=== PATIENT | male | born 2000 | race Hispanic/Latino ===

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

== ENCOUNTER 2022-02-09 19:17 | Emergency (ER) | payer OTHER ==
--- OUTSIDE RECORDS SUMMARY | 2022-02-09 19:21 | XMS REPORT | Continuity of Care Document ---
:2000 Author Organization [facility] Address [address] [place] [address] Care Team Providers Name Role Phone Nomi Barraza MD Primary Care Physician [phone] NOMI BARRAZA Attending Clinician Unavailable Dread Crisostomo MD Attending Clinician Doctor Unassigned, Post Attending Clinician Unavailable Joe Godinez MD Attending Clinician Nomi Barraza MD Attending Clinician Only, Yuri Test Attending Clinician Unavailable Jarrod Lawler MD Attending Clinician Jessi Delvalle NP Attending Clinician Nurse, Adc Fam Pob I Attending Clinician Unavailable PRASANNA LEVI Attending Clinician Unavailable KARLY BLAIR Attending Clinician Unavailable Payers Payer Name Policy Type Policy Number Effective Date Expiration Date Dwayne BANEGAS [id number] 2001 00:00:00 HMO/POS/OPEN ACCESS Problems Condition Condition Condition Status Onset Resolution Last Treating Co mments Source Name Details Category Date Date Treatment Clinician Date Seizure Seizure Disease Active [facility] disorder disorder 12-06 [facility] 00:00: 00 S/P TOPSTITCHER LOCKSTITCH S/P TOPSTITCHER LOCKSTITCH Disease Active [facility] shunt shunt 12-06 Health 00:00: 00 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 00:00: 00 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 07-24 Colleg e with with 00:00: of impairment impairment 00 Me dicin of of e consciousn [facility] ess [facility] 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 08-08 [facility] seizure seizure 00:00: of (HCCode) (HCCode) 00 Medici n e S/P TOPSTITCHER LOCKSTITCH S/P TOPSTITCHER LOCKSTITCH Disease Active 2016-07 [facility] shunt shunt 2 [place] 00:00: of 00 Medicin e No known No known Disease Unive rs active active ity of problems problems [place] [facility] Allergies, Adverse Reactions, Alerts Allergy Allergy Status Severity Reaction(s) Onset Inactive Treating Comm ents Source Name Type Date Date Clinician CODEINE DRUG Active Med Rash 2019-07 [facility] INGREDI 0-19 ity of 00:00: [place] 00 Medical Branch Codeine Propensi Active Rash 2019-07 [facility] ty to 0-19 ity of adverse 00:00: [place] reaction 00 Medical s Branch CODEINE [facility]ergy [facility] Codeine Propensi Active Rash 2016-07 [facility] ty to 207 [place] adverse 00:00: of reaction 00 Medicin s to e drug Codeine Allergy Active Rash 0 [facility] to 2-15 [facility] 00:00: e 00 Social History Social Habit Start Date Stop Date Quantity Comments Source History SDIL University o f Alcohol Comment [place] [facility] History SDIL University o f Alcohol Std [place] [facility] Drinks [facility] History [facility] University o f Alcohol Binge [place] [facility] Exposure to 2021-11-06 2021-12-06 Not sure [place] [facility] SARS-CoV-2 00:00:00 09:56:00 (event) Tobacco use and 2020-06-11 2020-06-11 Never used [facility] Co llege of exposure 00:00:00 00:00:00 Medicine Alcohol intake 2020-06-11 2020-06-11 Current [facility] Col lege of 00:00:00 00:00:00 non-drinker of Medicine alcohol (finding) History [facility] 2020-04-19 2020-04-19 1 University o f Alcohol Frequency 00:00:00 00:00:00 Rafia morse Branch Sex Assigned At [birth year] [facility] 00:00:00 00:00:00 Smoking Status Start Date Stop Date Source Tobacco smoking consumption unknown [facility] Never smoker [facility] o f Medicine Medications Ordered Filled Start Stop Current Ordering Indication Dosage Frequency Signature Comments Components Source Medication Medication Date Date Medication? Clinician (SIG) Name Name amphetamine Yes [id number] 20mg Take 1 Univers -dextroamph 7-28 capsule by it y of etamine 00:00: mouth [place] (ADDERALL 00 every Medical XR) 20 mg morning. Branch 24 hr capsule amphetamine Yes [id number] 20mg Take 1 Univers -dextroamph 6-29 capsule by it y of etamine 00:00: mouth [place] (ADDERALL 00 every Medical XR) 20 mg morning. Branch 24 hr capsule amphetamine 2021- No [id number] 20mg Take 1 Univers -dextroamph 6-29 07-28 capsule by i ty of etamine 00:00: 00:00 mouth [place] (ADDERALL 00 :00 every Medical XR) 20 mg morning. Branch 24 hr capsule levETIRAcet Yes [id number] 500mg Q.5D Take 1 [facility] am (Keppra) 6-07 tablet Health 500 MG 00:00: (500 mg tablet 00 total) by mouth 2 (two) times a day. levETIRAcet 2021-0 Yes [id number] 500mg Q.5D Take 1 [facility] am (Keppra) 6-07 tablet Health 500 MG 00:00: (500 mg tablet 00 total) by mouth 2 (two) times a day. levETIRAcet 2021-0 Yes [id number] 500mg Q.5D Take 1 [facility] am (Keppra) 6-07 tablet Health 500 MG 00:00: (500 mg tablet 00 total) by mouth 2 (two) times a day. amphetamine Yes [id number] 20mg Take 1 Univers -dextroamph 6-01 capsule by it y of etamine 00:00: mouth [place] (ADDERALL 00 every Medical XR) 20 mg morning. Branch 24 hr capsule amphetamine 2021- No [id number] 20mg Take 1 Univers -dextroamph 11-30 capsule by i ty of etamine 00:00: 00:00 mouth [place] (ADDERALL 00 :00 every Medical XR) 20 mg morning. Branch 24 hr capsule amphetamine 2021- No [id number] 15mg Take 1 Univers -dextroamph 10-31 capsule by i ty of etamine 00:00: 00:00 mouth [place] (ADDERALL 00 :00 every Medical XR) 15 mg morning. Branch 24 hr capsule levETIRAcet 2020-07- No 1{tbl} Q.5D Take 1 U T am (Keppra) 07-27 tablet by He alth 500 MG 00:00: 00:00 mouth 2 tablet 00 :00 (two) times a day. amphetamine 2020-07 Yes [facility] -dextroamph 1-03 Health etamine 00:00: (Adderall) 00 20 MG tablet amphetamine 2020-07 Yes UT -dextroamph -03 Health etamine 00:00: (Adderall) 00 20 MG tablet amphetamine 2020-07 Yes [facility] -dextroamph 103 Health etamine 00:00: (Adderall) 00 20 MG tablet Multiple 2019-07 Yes Take by [facility] Vitamins-Mi 2-11 mouth. Colleg e nerals 15:57: of (MULTIVITAM 44 Medicin IN ADULT e OR) doxycycline 2019-07 Yes 100mg Take 100 [facility] (VIBRA-TABS 2-11 mg by [place] ) 100 MG 15:33: mouth. of tablet 14 Medicin e Dapsone 2019-07 Yes Apply [facility] (ACZONE EX) 2-11 topically. Co llege 15:33: of 14 Medicin e levetiracet 2019-07 Yes [id number] 500mg Take 1 [facility] am (KEPPRA) 2-11 8 Tablet by Col lege 500 MG 00:00: mouth two of tablet 00 times Medicin daily. e levetiracet 2019-07- No [id number] TAKE ONE [facility] am (KEPPRA) 0- 12-11 8 (1) College 500 MG 00:00: 00:00 TABLET(S) of tablet 00 :00 BY MOUTH Medicin TWICE A e DAY. levETIRAcet 2019-07 Yes 500mg Take 500 U nivers am (KEPPRA) 0-19 mg by ity of 500 mg 18:38: mouth 2 [place] tablet 05 (two) Medical times Branch daily. doxycycline 2019-07 Yes 100mg Take 100 U nivers hyclate 100 0-19 mg by ity of mg tablet 18:38: mouth [place] 05 daily. Medical Branch levETIRAcet 2019-07 Yes 500mg Take 500 U nivers am (KEPPRA) 0-19 mg by ity of 500 mg 18:38: mouth 2 [place] tablet 05 (two) Medical times Branch daily. doxycycline 2019-07 Yes 100mg Take 100 U nivers hyclate 100 0-19 mg by ity of mg tablet 18:38: mouth [place] 05 daily. Medical Branch levETIRAcet 2019-07 Yes 500mg Take 500 U nivers am (KEPPRA) 0-19 mg by ity of 500 mg 13:38: mouth 2 [place] tablet 05 (two) Medical times Branch daily. levETIRAcet 2019-07 Yes 500mg Take 500 U nivers am (KEPPRA) 0-19 mg by ity of 500 mg 13:38: mouth 2 [place] tablet 05 (two) Medical times Branch daily. levETIRAcet 2019-07 Yes 500mg Take 500 U nivers am (KEPPRA) 0-19 mg by ity of 500 mg 13:38: mouth 2 [place] tablet 05 (two) Medical times Branch daily. butalbital- 2019- No TAKE ONE [facility] acetaminoph 01-29- (1) College en-caffeine 00:00: 00:00 TABLET(S) of (FIORICET, 00 :00 BY MOUTH Medic in ESGIC) EVERY SIX e 50-325-40 HOURS MG per NEEDED FOR tablet HEADACHE FOR UP TO 10 DAYS. fluticasone 2020- No FLUTICASON [facility] (FLONASE) 12-26- E [place] 50 MCG/ACT 00:00: 00:00 PROPIONATE of nasal spray 00 :00 50 MCG/ACT Me dicin SUSP e Immunizations Ordered Immunization Filled Immunization Date Status Commen ts Source Name Name HEP B, Adult Dosage 2020-05-31 Completed Unive rsity of 00:00:00 [facility] HEP B, Adult Dosage 2020-05-31 Completed Unive rsity of 00:00:00 [facility] HEP B, Adult Dosage 2020-05-31 Completed Unive rsity of 00:00:00 [facility] HEP B, Adult Dosage 2020-05-31 Completed Unive rsity of 00:00:00 [facility] HEP B, Adult Dosage 2020-05-31 Completed Unive rsity of 00:00:00 [facility] HEP B, Adult Dosage 2020-04-29 Completed Unive rsity of 00:00:00 [facility] HEP B, Adult Dosage 2020-04-29 Completed Unive rsity of 00:00:00 [facility] HEP B, Adult Dosage 2020-04-29 Completed Unive rsity of 00:00:00 [facility] HEP B, Adult Dosage 2020-04-29 Completed Unive rsity of 00:00:00 [facility] HEP B, Adult Dosage 2020-04-29 Completed Unive rsity of 00:00:00 [facility] Meningococcal 2020-04-19 Completed University of Polysaccharide 00:00:00 [place] [facility] (groups A, C, Y and Branc h W-135) conjugate vaccine (MCV4P) Meningococcal 2020-04-19 Completed University of Polysaccharide 00:00:00 [place] [facility] (groups A, C, Y and Branc h W-135) conjugate vaccine (MCV4P) Meningococcal 2020-04-19 Completed University of Polysaccharide 00:00:00 [place] [facility] (groups A, C, Y and Branc h W-135) conjugate vaccine (MCV4P) Meningococcal 2020-04-19 Completed University of Polysaccharide 00:00:00 [place] [facility] (groups A, C, Y and Branc h W-135) conjugate vaccine (MCV4P) Meningococcal 2020-04-19 Completed University of Polysaccharide 00:00:00 [place] [facility] (groups A, C, Y and Branc h W-135) conjugate vaccine (MCV4P) Influenza Virus 2016-06-29 Completed Universit y of Vaccine Quad IM 3+ 00:00:00 [facility] Influenza Virus 2016-06-29 Completed Universit y of Vaccine Quad IM 3+ 00:00:00 [facility] Influenza Virus 2016-06-29 Completed Universit y of Vaccine Quad IM 3+ 00:00:00 [facility] Influenza Virus 2016-06-29 Completed Universit y of Vaccine Quad IM 3+ 00:00:00 [facility] Influenza Virus 2016-06-29 Completed Universit y of Vaccine Quad IM 3+ 00:00:00 [facility] Vital Signs Vital Name Observation Time Observation Value Comments Source Systolic blood 2021-12-06 15:05:00 130 mm[Hg] [facility] Diastolic blood 2021-12-06 15:05:00 75 mm[Hg] [facility] pressure Heart rate 2021-12-06 15:05:00 80 /min [facility] Body temperature 2021-12-06 15:05:00 37.89 Giovana [facility] Body height 2021-12-06 15:05:00 175.3 cm [facility] Body weight 2021-12-06 15:05:00 70.761 kg [facility] BMI 2021-12-06 15:05:00 23.04 [facility] in 2021-12-06 15:05:00 100 /min [facility] Arterial blood by Pulse oximetry Systolic blood 2021-11-30 19:57:00 120 mm[Hg] Univer sity of [facility] Diastolic blood 2021-11-30 19:57:00 77 mm[Hg] Unive rsity of [facility] Heart rate 2021-11-30 19:57:00 76 /min [facility] Body height 2021-11-30 19:57:00 175.3 cm [facility] Body weight 2021-11-30 19:57:00 71.215 kg [facility] BMI 2021-11-30 19:57:00 23.18 kg/m2 [facility] Systolic blood 2020-06-11 15:31:00 138 mm[Hg] [facility] pressure Medicine Diastolic blood 2020-06-11 15:31:00 69 mm[Hg] [facility] pressure Medicine Heart rate 2020-06-11 15:31:00 71 /min [facility] height 2020-06-11 15:31:00 175.3 cm [facility] Body weight 2020-06-11 15:31:00 68.947 kg [facility] BMI 2020-06-11 15:31:00 22.45 kg/m2 [facility] HEIGHT 2020-01-29 00:00:00 170.2 cm WEIGHT 2020-01-29 00:00:00 65.772 kg HEIGHT 2020-01-29 00:00:00 170.2 cm WEIGHT 2020-01-29 00:00:00 65.772 kg Procedures Procedure Date / Time Performed Performing Clinician Sour e COMPREHENSIVE METABOLIC PANEL 2021-12-06 16:25:00 David Godinez i [facility] LEVETIRACETAM, IMMUNOASSAY 2021-12-06 16:25:00 Joe Godinez [facility] Plan of Care Planned Activity Planned Date Details Comments Source Future Scheduled 2021-04-19 Depression screening Uni versity of Test 00:00:00 (procedure) [code = [facility] dical [id number]] Branch Future Scheduled 2021-04-19 Depression screening Uni versity of Test 00:00:00 (procedure) [code = [facility] dical [id number]] Branch Future Scheduled 2021-03-02 INFLUENZA VACCINE Univer sity of Test 00:00:00 (Season Ended) [code [facility] edical = INFLUENZA VACCINE Branch (Season Ended)] Future Scheduled 2021-03-02 INFLUENZA VACCINE Univer sity of Test 00:00:00 (Season Ended) [code [facility] edical = INFLUENZA VACCINE Branch (Season Ended)] Diagnostic Test 2020-11-04 COVID-19 (MOLECULAR Expected: Unive rsity of Pending 00:00:00 TESTING 11/04/2020, [place] [facility] NUCLEIC ACID Expires: Branch AMPLIFICATION) [code 11/04/2021 = 78313-1] Diagnostic Test 2020-11-04 COVID-19 (MOLECULAR Expected: Unive rsity of Pending 00:00:00 TESTING 11/04/2020, [place] [facility] NUCLEIC ACID Expires: Branch AMPLIFICATION) [code 11/04/2021 = 00813-7] Future Scheduled 2017 DTaP,Tdap,and Td Univers ity of Test 00:00:00 Vaccines (1 - Tdap) [facility] dical [code = Branch DTaP,Tdap,and Td Vaccines (1 - Tdap)] Future Scheduled 2017 DTaP,Tdap,and Td Univers ity of Test 00:00:00 Vaccines (1 - Tdap) [place] [facility] dical [code = Branch DTaP,Tdap,and Td Vaccines (1 - Tdap)] Future Scheduled 2016 Hepatitis C University of Test 00:00:00 screening [place] [facility] (procedure) [code = Branch [id number]] Future Scheduled 2016 Hepatitis C University of Test 00:00:00 screening [place] [facility] (procedure) [code = Branch 849891213] Future Scheduled 2014 SARS-CoV-2 University of Test 00:00:00 (COVID-19) Vaccine [place] [facility] (1) [code = Branch SARS-CoV-2 (COVID-19) Vaccine (1)] Future Scheduled 2014 SARS-CoV-2 University of Test 00:00:00 (COVID-19) Vaccine [place] [facility] ical (1) [code = Branch SARS-CoV-2 (COVID-19) Vaccine (1)] Future Scheduled 2009 HPV VACCINES (1 - Univer sity of Test 00:00:00 Male 2-dose series) [place] [facility] dical [code = HPV VACCINES Branch (1 - Male 2-dose series)] Future Scheduled 2009 HPV VACCINES (1 - Univer sity of Test 00:00:00 Male 2-dose series) [place] [facility] dical [code = HPV VACCINES Branch (1 - Male 2-dose series)] Future Scheduled 2008 MENINGOCOCCAL B Universi ty of Test 00:00:00 VACCINES (1 of 2 - [place] [facility] ical Risk Bexsero 2-dose Branch series) [code = MENINGOCOCCAL B VACCINES (1 of 2 - Risk Bexsero 2-dose series)] Future Scheduled 2008 MENINGOCOCCAL B Universi ty of Test 00:00:00 VACCINES (1 of 2 - [place] [facility] ical Risk Bexsero 2-dose Branch series) [code = MENINGOCOCCAL B VACCINES (1 of 2 - Risk Bexsero 2-dose series)] Future Scheduled 1999 VARICELLA VACCINES Unive rsity of Test 00:00:00 (1 of 2 - 2-dose [place] [facility] childhood series) Branch [code = VARICELLA VACCINES (1 of 2 - 2-dose childhood series)] Future Scheduled 1999 VARICELLA VACCINES Unive rsity of Test 00:00:00 (1 of 2 - 2-dose [place] [facility] al childhood series) Branch [code = VARICELLA VACCINES (1 of 2 - 2-dose childhood series)] Future Scheduled CBC W/O DIFF W PLT Ordered: [facility] of Test [code = 6690-2] 06/11/2020 Medicine Future Scheduled COMPREHENSIVE Ordered: [facility] Col lege of Test METABOLIC PANEL 06/11/2020 Medicine [code = 15310-6] Future Scheduled LEVETIRACETAM [code Ordered: [facility] of Test = 32410] 06/11/2020 Medicine Future Scheduled HPV VACCINE (1 - [facility] of Test Male 2-dose series) Medicine [code = HPV VACCINE (1 - Male 2-dose series)] Future Scheduled TETANUS SHOT (ADULT) [facility] Test [code = TETANUS SHOT Medicin e (ADULT)] Future Scheduled HEPATITIS C [facility] Maria Del Carmen ege of Test SCREENING [code = Medicine HEPATITIS C SCREENING] Future Scheduled HIV SCREENING [code [facility] or [place] of Test = HIV SCREENING] Medicine Future Scheduled FLU VACCINE > 6 [facility] C ollege of Test MONTHS [code = FLU Medicine VACCINE > 6 MONTHS] Encounters Start End Encounter Admission Attending Care Care Encounter Source Date/Time Date/Time Type Type Clinicians Facility Department ID 2022-04-03 2022-04-03 Outpatient R MADI [facility] [id number] A-20 Univers 13:00:00 13:00:00 NOMI [id number] ity of [facility] 2022-02-07 2022-02-07 Telephone MARLIN Crisostomo 6400 [id number] [place] 00:00:00 00:00:[address] [id number] Health [id number] [id number] 2022-01-26 2022-01-26 Refill Doctor [facility] [id number] Univers 00:00:00 00:00:00 Unassigned, HEALTH 350.1.13.10 ity of Post JOSE 4.2.7.2.686 [place] as BARNEY?BLEA [id number] [place] tim[place] [address] MEDICAL OFFICE BUILDING 2022-01-10 2022-01-10 Telephone MARLIN Godinez 6410 [id number] [place] 00:00:00 00:00:00 Joe [place] [id number] Health 9.2.7.2.686 [id number] 2021-12-28 2021-12-28 [facility] [id number] Univers 00:00:00 00:00:00 Nomi HEALTH [id number] it y of [place] 4.2.7.2.686 Feliciano as BARNEY?BLEA [id number] [address] OFFICE BUILDING 2021-12-06 2021-12-06 Office Gretchen [facility] 6410 [id number] [place] 10:30:00 10:49:15 Visit Joe DE [place] [id number] Health 9.2.7.2.686 [id number] 2021-11-30 2021-11-30 [facility] [id number] [facility] 15:00:00 15:15:00 Visit Nomi HEALTH [id number] it y of [place] 4.2.7.2.686 Feliciano as BARNEY?BLEA [id number] [address] OFFICE BUILDING 2020-06-11 2020-06-11 Office NEIL Delvalle 1.2.840.[id number] [place] [address] 09:26:08 15:32:06 Visit Jessi AMBULATOR 350.1.13.21 College Y 0.2.7.2.[id number] [facility] 800 e 2020-05-31 2020-05-31 Nurse Nurse, [facility] 1.2.840.114 [id number] 08:57:25 09:17:25 Visit Fam Pob I Health 350.1.13.10 [place] 4.2.7.2.686 Professio [id number] [place] [address] [address] 2020-04-29 2020-04-29 Nurse Nurse, [facility] 1.2.840.114 [id number] 08:52:28 12:49:59 Visit Fam Pob I Health 350.1.13.10 [place] 4.2.7.2.686 Professio [id number] [place] 044 Office [address] 2020-04-19 2020-04-19 Office TASHA Barraza 1.2.840.114 [id number] 13:23:35 14:09:50 Visit Nomi Burleson 350.1.13.10 Vinicio Miller 4.2.7.2.686 brianmarjorie [id number] nal 044 Office [address] 2020-01-29 2020-01-29 Emergency ER [facility] Emergency [id number] SLEH 19:13:00 19:13:00 2020-01-27 2020-01-27 Outpatient BLAIR, [facility] [id number] SLE 00:00:00 00:00:00 KARLY 2020-01-27 2020-01-27 Outpatient EL BLAIR, [facility] [id number] SLE 00:00:00 00:00:00 KARLY Results Test Description Test Time Test Comments Results Result Comments Source Comprehensive metabolic panel 2021-12-08 07:00:00 Test Item Value Reference Range Interpretation Comme nts GLUCOSE (test code = 87 mg/dL 65-99 ? Fasting 2345-7) reference inter liyah UREA NITROGEN (BUN) (test 26 mg/dL 7-25 H code = 3094-0) CREATININE (test code = 0.94 mg/dL 0.6-1.35 2160-0) eGFR NON- See_Comment [ Automated message] (test code = 11315-0) The sy stem which generated this result transmitted ref erence range: > OR = 6 0 mL/min/1.73m2. The reference range was not used to int erpret this result as normal/abnormal . eGFR See_Comment [Auto mated message] (test code = 95250-2) The sy stem which generated this result transmitted ref erence range: > OR = 6 0 mL/min/1.73m2. The reference range was not used to int erpret this result as normal/abnormal . BUN/CREATININE RATIO (test See_Comment H [Automated message] code = 3097-3) The system wh ich generated this result transmitted ref erence range: 6 - 22 ( calc). The reference r lita was not used to interpret this result as normal/abnor mal. SODIUM (test code = 140 mmol/L 064-942 0226-2) POTASSIUM (test code = 4.8 mmol/L 3.5-5.3 2823-3) CHLORIDE (test code = 103 mmol/L 98-110 2074-0) CARBON DIOXIDE (test code 27 mmol/L 20-32 = 2027-9) CALCIUM (test code = 9.8 mg/dL 8.6-10.3 10706-0) PROTEIN, TOTAL (test code 7.6 g/dL 6.1-8.1 = 2885-2) ALBUMIN (test code = 5 g/dL 3.6-5.1 1751-7) GLOBULIN (test code = See_Comment [Auto mated message] 67199-3) The system [employer] generated this result transmitted ref erence range: 1.9 - 3. 7 g/dL (calc). The ref erence range was not u sed to interpret this result as normal/abnor mal. ALBUMIN/GLOBULIN RATIO See_Comment [Aut omated message] (test code = 1759-0) The sys tem which generated this result transmitted ref erence range: 1.0 - 2. 5 (calc). The ref erence range was not u sed to interpret this result as normal/abnor mal. BILIRUBIN, TOTAL (test 0.7 mg/dL 0.2-1.2 code = 1974-2) ALKALINE PHOSPHATASE (test 100 U/L 36-130 code = 6768-6) AST (test code = 1920-8) 23 U/L 10-40 ALT (test code = 1742-6) 21 U/L 9-46 RAC (test code = RAC) Performing Organization Information: ? ?Site ID: [id number] ? ?Name: [facility] ? ?Address: [address] [place] [id number] ? ?Director: ASHWINI KRISHNAMURTHY MD Lab Interpretation (test Abnormal code = 32032-8) [place] HealthLEVETIRACETAM, [id number] 07:00:00 Test Item Value Reference Range Interpretation Comments LEVETIRACETAM (test See_Comment Brivarac etam code = 76111-9) (Brivact(R), Rikelta(R)) exhibits significantcros s-r eactivity in th e levetiracetam (Keppra(R), Spritam(R))immu evelyn ssay. If Brivaracetam quezada s been prescribed , order send out test for Levetiracetam b y GC/MS. [Automat ed message] The system which generated this result transmit scotty reference range : 6.0 - 46.0 mcg/ mL. The reference range was not u sed to interpret th is result as normal/abnormal . RAC (test code = Performing RAC) Organization Information: ? ?Site ID: [id number] ? ?Name: [employer] ? ?Address: [address] [place] [address] [place] [address] ? ?Director: ASHWINI KRISHNAMURTHY MD [facility] ([facility])2020-01-30 11:43:00 Test Item Value Reference Range Interpretation Comments SARS-COV2/RT-PCR (test Negative Not Detected, Negative, code = 6850863) See external report for linked test SARS-COV-[address] [facility] CHRIS (test code = 6289769) Negative result for this test determines that SARS-CoV-2 RNA was not present in the specimen above the Limit of Detection (LOD). However, Negative results do not preclude SARS-CoV-2 infection and should not be used as the sole basis for treatment or patient management decisions. Negative results must be combined with clinical observations, patient history, and epidemiological information. A false negative result may occur if a specimen is improperly collected, transported or handled. A false negative result should be considered if patient's recent exposures or clinical presentation indicate that COVID-19 (SARS-CoV-2) is likely and diagnostic tests for other causes of illness are negative. Re-testing should be considered in cases of suspected false negatives.The limit of detection for this assay is 800 copies/mL.This SARS CoV-2 test is a real-time RT-PCR test intended for the qualitative detection of nucleic acid from SARS-CoV-2 in a nasopharyngeal swab specimen collected from individuals suspected of COVID-19 by their healthcare provider.This test has not been Food and Drug Administration (FDA) cleared or approved. This is a modified version of an approved Emergency Use Authorization (EUA) and is in the process of review by the FDA. Once authorized by the FDA, the issued EUA will be effective until the declaration that circumstances exist justifying the authorization of the emergency use ofin vitro diagnostic tests for detection and/or diagnosis of COVID-19 is terminated under Section 564(b)(2) of the Act or the EUA is revoked under Section 564(g) of the Act.Fact Sheet for Healthcare Prov iders:https://www.[employer]/sites/default/files/product/documents/Fact_Sheet_HC _Rnixukolc_Fcre_WDAU-CpQ-9.pdfFact Sheet for Healthcare Patients:https://www.[employer]/sites/default/files/product/docume nts/Gbzr_Hksal_Cwmqwqrb_Kcyd_NUBP-LvR-0.pdfPerforming Laboratory:[facility], [place] [address]ELUIV METABOLIC PANEL 2020-01-29 21:32:00 Test Item Value Reference Range Interpretation Comments SODIUM (BEAKER) 140 meq/L 136-145 (test code = 381) POTASSIUM (BEAKER) 3.5 meq/L 3.5-5.1 (test code = 379) CHLORIDE (BEAKER) 106 meq/L 98-107 (test code = 382) CO2 (BEAKER) (test 28 meq/L 22-29 code = 355) BLOOD UREA NITROGEN 15 mg/dL 7-21 (BEAKER) (test code = 354) CREATININE (BEAKER) 0.93 mg/dL 0.57-1.25 (test code = 358) GLUCOSE RANDOM 91 mg/dL 70-105 (BEAKER) (test code = 652) CALCIUM (BEAKER) 9.6 mg/dL 8.4-10.2 (test code = 697) EGFR (BEAKER) (test 103 mL/min/1.73 ESTIM ATED GFR IS code = 1092) sq m NOT ACCURATE CREATININE CLEARANCE IN PREDICTING GLOMERULAR FILTRATION RATE . ESTIMATED GFR I S NOT APPLICABLE FOR DIALYSIS PATIEN TS. 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 ID - [id number] W/PLT COUNT & AUTO [id number] 21:16:00 Test Item Value Reference Range Interpretation Comments WHITE BLOOD CELL COUNT (BEAKER) 9.7 K/ L 3.5-10.5 (test code = 775) RED BLOOD CELL COUNT (BEAKER) 4.89 M/ L 4.63-6.08 (test code = 761) HEMOGLOBIN (BEAKER) (test code = 14.2 GM/DL 13.7-17.5 410) HEMATOCRIT (BEAKER) (test code = 41.4 % 40.1-51.0 411) MEAN CORPUSCULAR VOLUME (BEAKER) 84.7 fL 79.0-92.2 (test code = 753) MEAN CORPUSCULAR HEMOGLOBIN 29.0 pg 25.7-32.2 (BEAKER) (test code = 751) MEAN CORPUSCULAR HEMOGLOBIN CONC 34.3 GM/DL 32.3-36.5 (BEAKER) (test code = 752) RED CELL DISTRIBUTION WIDTH 12.0 % 11.6-14.4 (BEAKER) (test code = 412) PLATELET COUNT (BEAKER) (test 175 K/CU MM 150-450 code = 756) MEAN PLATELET VOLUME (BEAKER) 10.4 fL 9.4-12.4 (test code = 754) NUCLEATED RED BLOOD CELLS 0 /100 WBC 0-0 (BEAKER) (test code = 413) NEUTROPHILS RELATIVE PERCENT 81 % (BEAKER) (test code = 429) LYMPHOCYTES RELATIVE PERCENT 7 % (BEAKER) (test code = 430) MONOCYTES RELATIVE PERCENT 10 % (BEAKER) (test code = 431) EOSINOPHILS RELATIVE PERCENT 1 % (BEAKER) (test code = 432) BASOPHILS RELATIVE PERCENT 0 % (BEAKER) (test code = 437) NEUTROPHILS ABSOLUTE COUNT 7.83 K/ L 1.78-5.38 H (BEAKER) (test code = 670) LYMPHOCYTES ABSOLUTE COUNT 0.67 K/ L 1.32-3.57 L (BEAKER) (test code = 414) MONOCYTES ABSOLUTE COUNT (BEAKER) 0.97 K/ L 0.30-0.82 H (test code = 415) EOSINOPHILS ABSOLUTE COUNT 0.13 K/ L 0.04-0.54 (BEAKER) (test code = 416) BASOPHILS ABSOLUTE COUNT (BEAKER) 0.03 K/ L 0.01-0.08 (test code = 417) IMMATURE GRANULOCYTES-RELATIVE 0 % 0-1 PERCENT (BEAKER) (test code = 2801) CT, BRAIN, WITHOUT [id number] 20:59:00Reason for exam:->HEADACHEWhat is the patient's sedation requirement?->No SedationFINAL REPORT CT, BRAIN, WITHOUT CONTRAST CLINICAL INDICATION: Headache, acute, n ormal neuro examHEADACHE COMPARISON: 01/19/2020, January 25, 2018 TECHNIQUE: Noncontrast axial CT imaging of the brain and skull. Coronal and sagittal reformats obtained. DOSE REDUCTION: Dose modulation, iterative reconstruction, and/or weight-based adjustment of the mA/kV was utilized to reduce the radiation dose to as low as reasonably achievable. FINDINGS:Left frontal and occipital lobe encephalomalacia. Diminutive corpus callosum noted. Left frontal ventriculostomy catheter tip intersects with the third ventricle, stable in appearance. No shunt discontinuity or kinking imaged. Ventricles are stablein appearance and slitlike in morphology. No hydrocephalus. No acute intracranial hemorrhage, mass or midline shift. No evidence of acute cortical infarct. Symone hole craniotomy defects again noted. Orbits, globes, paranasal sinuses and mastoid air cells are stable. IMPRESSION: Stable examination compared to 01/27/2020. If there is persistent clinical concern for intracranial pathology, MR examination is recommended for further characterization. Signed: Zachary Tinoco Verified Date/Time: 01/29/2020 20:59:00 RAD, SHUNT [id number] 20:50:00Reason for exam:->HEADACHEFINAL REPORT EXAM: SHUNT SERIES INDICATION: HEADACHE COMPARISON: 01/27/2020 TECHNIQUE: Radiographs of the skull, chest, and abdomen. FINDINGS:Proximal limb: Enters the left frontal bone with its tip near the midline.Distal limb: Intact without breakage. There is slight angulation of the catheter within the midabdomen greater than 90 degrees without definite kinking.Chest: The lungs are clear. Abdomen: The bowel gas pattern is unremarkable. Additional Findings: Partially calcifiedabandoned shunt within the left neck soft tissues again noted. IMPRESSION: Intact shunt. Signed: Zachary Tinocoort Verified Date/Time: 01/29/2020 20:50:24 CT, BRAIN, WITHOUT IV [id number] 15:12:00FINAL REPORT CT, BRAIN, WITHOUT IV CONTRAST HISTORY: TOPSTITCHER LOCKSTITCH shunt, seizures COMPARISON: Head CT 01/25/2018 TECHNIQUE: Noncontrast axial scans were obtained from skull base to the vertex. Coronal and sagittal reconstructions obtained from the axial data. One or more of the following dose reduction techniques were used: Automated exposure control, adjustment of the mA and/or kV according to patient size, and/or utilization of iterative reconstruction technique. DISCUSSION: Scalp/Skull:Left frontal symone hole for shunt catheter is present. Additional left parietal symone hole is also present.Brain sulci: Overall mildly prominent, which has slightly increased.Ventricles: The ventricles are slitlike. Left frontal approach ventricular shunt catheter terminates along the anterior third ventricle. The imaged catheter is grossly intact. Retained tubing in the left neck is partially imaged.Extra-axial spaces: No masses or fluid collections. Parenchyma: Areas of left superior frontal and left occipital encephalomalacia are overall stable.Atrophic/hypoplastic corpus callosum also has not sign ificantly changed.Otherwise, no masses, hemorrhage, or large vascular territory acute infarct. Duralsinuses: No abnormal densities.Sellar/Suprasellar region: Intact.Skull base: Intact.Incidental findings: None. IMPRESSION:1.Slitlike ventricles. Left frontal ventricular shunt catheter terminates at the anterior third ventricle. The imaged catheter is grossly intact.2.Otherwise, no acute intracranial abnormalities.3.Mild generalized cerebral volume loss has slightly progressed.4.No other significant changes when compared to head CT dated 01/25/2018. Chronic findings:1.Left superior frontal and left occipital encephalomalacia.2.Dysgenesis of the corpus callosum. Signed: Foreign Hinojosa MDRsid Verified Date/Time: 01/27/2020 15:12:34 Reading Location: [facility] Room [address] [place] [address] RAD, SHUNT [id number] 14:23:00Reason for Exam:->S/P TOPSTITCHER LOCKSTITCH shunt, Single epileptic seizure, Foucal epilepsy with impairment of consc iousnessFINAL REPORT EXAMINATION: TOPSTITCHER LOCKSTITCH shunt series COMPARISON: TOPSTITCHER LOCKSTITCH shunt series 01/25/2018CLINICAL HISTORY: Status post TOPSTITCHER LOCKSTITCH shunt, epilepsy DISCUSSION: Left frontal approach TOPSTITCHER LOCKSTITCH shunt cathetertip terminates at midline. Apparatus and tubing are intact as visualized traversing the left lateralcervical subcutaneous tissues, left anterior chest wall, and left paramedian abdominal wall. The catheter tip terminates in the midline pelvis. The catheter tubing is intact without evidence of discontinuity, fracture, or kink. Abandoned, fractured and peripherally calcified shunt tubing is again noted in the left lateral cervical soft tissues, not significantly changed compared to prior. Lungs are clear. Bowel gas pattern is nonobstructive. Regional skeletal structures are grossly intact. IMPRESSION: Intact ventriculoperitoneal shunt as detailed above. Signed: Honorio Clark MDReport Verified Date/Time: 01/27/2020 14:23:07 Reading Location: [facility] Reading Room [address] [place] [address] AWAKE AND [birth year] 15:41:00Reason for exam:->single epileptic seizureDate(s) of EE09/28/2017 DATE OF REPORT: 09/28/2017 ACC: [id number] EEG Number: [id number] Test Location: Outpatient EEG Lab Start time: 1354 Stop time: 1424 ICD-10: R56.9 CPT Code: 77329 HISTORY: 17 y/o man with history of hydrocephalus s/p shunt with a first time episode of unresponsiveness and body jerking concerning for seizure MEDICATIONS THAT COULD AFFECT EEG: levetiracetam TECHNICAL SUMMARY: This is a digital video-EEG recorded with 32 input channels reviewed with bipolar and referential montagesusing the modified combinatorial system nomenclature. DESCRIPTION OF RECORD: During the maximally alert state a 8.5-9.5 Hz posterior dominant rhythm was seen that was symmetric, reactive to eye openingand well regulated. More anteriorly, low voltage frontocentral beta predominated. Drowsiness was characterized by alpha attenuation and increased frontocentral theta, vertex sharp transients and POSTS.Stage 2 sleep was reached characterized by symmetric sleep spindles. SIGNIFICANT VIDEO EVENTS: None S IGNIFICANT ELECTROCARDIOGRAM EVENTS: None HV: Hyperventilation was performed for 3 minutes with goodeffort. There was mild build-up of delta slowing with HV. PHOTIC STIMULATION: Photic stimulation wasdone from 3-30 Hz; no photic driving was seen; photoparoxysmal responses were absent. IMPRESSION: Normal Awake and Sleep EEG CLINICAL CORRELATION: An EEG without epileptiform discharges does not exclude the possibility of epilepsy. If the clinical suspicion of epilepsy remains, consider additional EEGrecordings. Carly Alfred MD Neurophysiology Fellow Augustine Barkley M.D., BERRY, FAAN, FASUZANNE Director, [facility] Epilepsy [place] [facility], [facility] Neurophysiology Lab
[2022-02-09] MEDS ORDERED: ONDANSETRON 4 MG/2 ML VIAL ONE (20:06)
[2022-02-09] MEDS ORDERED: MORPHINE 2 MG/ML SYR ONE (20:06)
[2022-02-09 20:56] LABS: Potassium 3.7 mmol/L (3.5-5.1)
--- NOTE | 2022-02-09 21:08 | RAD REPORT ---
EXAM DESCRIPTION: CT - Head C Spine Cap Debra Grey - 02/09/2022 8:51 pm CLINICAL HISTORY: Trauma, head and neck injury. Chest, abdomen and pelvis pain. Trauma fall gt; 8 ft COMPARISON: No comparisons TECHNIQUE: CT head without contrast. CT cervical spine without contrast with coronal and sagittal reformatted images. CT chest, abdomen and pelvis with IV contrast (approximately 100 mL nonionic IV contrast) with marks l and sagittal reformatted images of the spine. All CT scans are performed using dose optimization technique as appropriate and may include automated exposure control or mA/KV adjustment according to patient size. FINDINGS: CT HEAD WITHOUT CONTRAST: No intracranial hemorrhage, hydrocephalus or extra-axial fluid collection. Left frontal lobe gliosis noted with ventriculostomy tube present. No areas of brain edema or midline shift. The paranasal sinuses and mastoids are essentially clear. The calvarium is intact. CT CERVICAL SPINE WITHOUT CONTRAST: No fracture or subluxation. The prevertebral soft tissues are normal in thickness. CT CHEST, ABDOMEN, PELVIS WITH CONTRAST: The lungs are clear.No pneumothorax or pericardial/pleural fluid. No evidence of intra-abdominal visceral injury, free fluid or free air. Shunt tubing is present coili ng in the pelvis. No concerning pelvic findings. No fractures. IMPRESSION: Negative for acute traumatic findings.
[2022-02-09 21:10] LABS: Absolute Lymphocytes (CBC) 1.2 K/uL (0.7-4.9); Hematocrit 43.8 % (39.6-49.0); MCV 82.5 fL (80-100); MPV 8.1 fL (7.6-11.3); RBC Red Blood Cell Count 5.31 M/uL (4.33-5.43)
--- NOTE | 2022-02-09 21:43 | ER ---
Nurse's Notes [facility] Name: Armando Duran Age: 21 yrs Sex: Male : 2000 Arrival Date: 02/09/2022 Time: 19:23 Bed 10 Private MD: Diagnosis: Back contusion, closed head injury, fall > 8 ft Presentation: 02/09 19:46 Chief complaint: Patient states: reports fell approx 9-10 foot through ceiling unsure kl if LOC reports landed on back "my legs feel like jelly" Pt has HX of hydrocephalus with shunt. Care prior to arrival: None. Mechanism of Injury: Fall from 2nd story approximately 10 feet. Trauma event details: Injury occurred in the [facility], Injury occurred: at home. Injury occurred: February 09, 2022 Injury occurred at: 18:00. 19:46 Acuity: ZACH 3 kl 19:46 Method Of Arrival: Wheelchair kl 20:01 Acuity: ZACH 2 kl 21:44 Coronavirus screen: At this time, the client does not indicate any symptoms associated as6 with coronavirus-19. Ebola Screen: No symptoms or risks identified at this time. Initial Sepsis Screen: Does the patient meet any 2 criteria? No. Patient's initial sepsis screen is negative. Does the patient have a suspected source of infection? No. Patient's initial sepsis screen is negative. Risk Assessment: Do you want to hurt yourself or someone else? Patient reports no desire to harm self or others. Onset of symptoms was February 09, 2022. Trauma Activation: Alert Physician: ED Physician; Name: Ammon; Notified At: 19:43; Arrived At: 19:45 Physician: General Surgeon; Name: ; Notified At: 19:43; Arrived At: Physician: Radiology; Name: ; Notified At: 19:43; Arrived At: Physician: Respiratory; Name: ; Notified At: 19:43; Arrived At: Physician: Lab; Name: ; Notified At: 19:43; Arrived At: Historical: - Allergies: 19:55 Codeine; kl - Home Meds: 19:55 levetiracetam 500 mg Oral tab 1 tab 2 times per day [Active]; Adderall XR 20 mg Oral kl cp24 1 cap once daily [Active]; - PMHx: 19:55 Hydrocephalus; Seizures; ADD; kl - PSHx: 19:55 shunt palacement; kl - Immunization history: Last tetanus immunization: < 10 years ago. - Social history:: Smoking status: Patient denies any tobacco usage or history of. Screenin:52 Abuse screen: Denies threats or abuse. Denies injuries from another. Tuberculosis aa9 screening: No symptoms or risk factors identified. 21:44 Nutritional screening: No deficits noted. Fall Risk None identified. as6 Primary Survey: 20:23 NO uncontrolled hemorrhage observed. A: The client is awake and alert. The airway is aa9 patent. Breathing/Chest: Spontaneous respiratory effort, equal unlabored respirations, breath sounds clear bilaterally, regular pattern, symmetrical chest rise and fall. Circulation: No external hemorrhage present. Regular and strong central pulse, skin warm/dry/normal color. Disability Pupils are equal, round, reactive to light and accommodation. Client is alert. Exposure/Environment: A warming method has been applied: A warm blanket has been provided to the patient. 21:44 Reassessment Alertness and Airway: Awake and alert. The airway is patent. Breathing: as6 Spontaneous respiratory effort, equal unlabored respirations, breath sounds clear bilaterally, regular pattern with symmetrical chest rise and fall. Circulation: No external hemorrhage noted. Regular and strong central pulse, skin warm/dry/normal color. Disability: Pupils Pupils are equal, round, reactive to light and accomodation. Alert. Secondary Survey: 20:24 HEENT: No deficits noted. Gastrointestinal: No deficits noted. : No deficits noted. aa9 Musculoskeletal: Reports pain in left scapular area, right scapular area and sacrum Pain is 4 out of 10 on a pain scale. Injury Description: Abrasion sustained to dorsal aspect of right forearm. Assessment: 19:52 General: Appears uncomfortable, well groomed, well developed, Behavior is calm, kl cooperative. Pain: Complains of pain in lower back and mid back right thumb. Neuro: Level of Consciousness is awake, alert, obeys commands, Oriented to person, place, time, situation, Reports headache occipital area. Derm: abrasions noted to bilateral inner arms no active bleeding. Musculoskeletal: Reports pain in thoracic area and lumbar area Pain is 4 out of 10 on a pain scale. Vital Signs: 19:50 BP 138 / 72; Pulse 91; Resp 16 S; Temp 98.5(O); Pulse Ox 100% on R/A; Weight 68.04 kg as6 (R); Height 5 ft. 7 in. (170.18 cm) (R); Pain 4/10; 21:41 BP 152 / 74; Pulse 86; Resp 18 S; Pulse Ox 100% on R/A; Pain 2/10; as6 19:50 Body Mass Index 23.49 (68.04 kg, 170.18 cm) as6 Mead Coma Score: 20:51 Eye Response: spontaneous(4). Verbal Response: oriented(5). Motor Response: obeys aa9 commands(6). Total: 15. Trauma Score (Adult): 20:51 Eye Response: spontaneous(1); Verbal Response: oriented(1); Motor Response: obeys aa9 commands(2); Systolic BP: > 89 mm Hg(4); Respiratory Rate: 10 to 29 per min(4); Abhi Score: 15; Trauma Score: 12 ED Course: 19:23 Patient arrived in ED. bp1 19:48 Wilfrid Sotelo, RN is Primary Nurse. as6 19:49 Mark Verde MD is Attending Physician. sp3 19:52 Triage completed. kl 20:10 Inserted saline lock: 20 gauge in right antecubital area, using aseptic technique. aa9 Blood collected. 20:52 CT Traumagram (Head C Spine CAP W Con) In Process Unspecified. EDMS 20:52 Patient has correct armband on for positive identification. Bed in low position. Adult aa9 w/ patient. 21:44 Patient maintains SpO2 saturation greater than 95% on room air. Thermoregulation: warm as6 blanket given to patient. 21:44 Arm band placed on. as6 21:45 No provider procedures requiring assistance completed. as6 21:53 IV discontinued, intact, bleeding controlled, No redness/swelling at site. Pressure as6 dressing applied. Administered Medications: 20:19 Drug: morphine 2 mg Route: IVP; Infused Over: 4 mins; Site: right antecubital; aa9 21:08 Follow up: Response: No adverse reaction aa9 20:19 Drug: Zofran (Ondansetron) 4 mg Route: IVP; Site: right antecubital; aa9 21:08 Follow up: Response: No adverse reaction aa9 Medication: 21:45 VIS not applicable for this client. as6 Intake: 21:45 PO: 0ml; Total: 0ml. as6 Outcome: 21:41 Discharge ordered by . ezio 21:45 Discharged to home ambulatory, with family. as6 21:45 Condition: stable 21:45 Patient's length of stay in the Emergency Department was greater than 2 hours. pending discharge Patient's length of stay extended due to 21:53 Discharge instructions given to patient, family, Instructed on discharge instructions, as6 follow up and referral plans. medication usage, Demonstrated understanding of instructions, follow-up care, medications, Prescriptions given X 1. 21:54 Patient left the ED. as6 Signatures: Dispatcher [employer] EDMS Samina Martell, RN RN Ora Brown Setul, MD MD sp3 Wilfrid Sotelo RN RN as6 Shilpi Garcia RN RN aa9
--- NOTE | 2022-02-09 21:43 | EDPHYS ---
Physician Documentation [facility] Name: Armando Duran Age: 21 yrs Sex: Male : 2000 Arrival Date: 02/09/2022 Time: 19:23 Bed 10 Private MD: ED Physician Mark Verde HPI: 02/09 20:04 This 21 yrs old Male presents to ER via Wheelchair with complaints of Fall sp3 Injury. 20:04 -year-old male with a history of hydrocephalus, epilepsy with a HEAD BOOKKEEPER shunt presents to [facility] the ED for fall of approximately 9 feet through the attic onto garage floor landing on his back with the lower back and posterior occiput. Patient reports possible LOC for "a brief second". He denies any other symptoms including neck pain, chest pain, upper back pain, extremity pain, vomiting, diarrhea, bleeding, changes in vision, any other symptoms of supportive ROS at this time. She has mild soft tissue abrasions on bilateral forearms as well.. Historical: - Allergies: 19:55 Codeine; kl - Home Meds: 19:55 levetiracetam 500 mg Oral tab 1 tab 2 times per day [Active]; Adderall XR 20 mg Oral kl cp24 1 cap once daily [Active]; - PMHx: 19:55 Hydrocephalus; Seizures; ADD; kl - PSHx: 19:55 shunt palacement; kl - Immunization history: Last tetanus immunization: < 10 years ago. - Social history:: Smoking status: Patient denies any tobacco usage or history of. ROS: 20:06 Constitutional: Negative for fever, chills, and weight loss, Eyes: Negative for injury, sp3 pain, redness, and discharge, ENT: Negative for injury, pain, and discharge, Neck: Negative for injury, pain, and swelling, Cardiovascular: Negative for chest pain, palpitations, and edema, Respiratory: Negative for shortness of breath, cough, wheezing, and pleuritic chest pain, Abdomen/GI: Negative for abdominal pain, nausea, vomiting, diarrhea, and constipation, Psych: Negative for depression, anxiety, suicide ideation, homicidal ideation, and hallucinations, Allergy/Immunology: Negative for hives, rash, and allergies, Endocrine: Negative for neck swelling, polydipsia, polyuria, polyphagia, and marked weight changes. 20:06 All other systems are negative. Exam: 20:06 Constitutional: This is a well developed, well nourished patient who is awake, alert, sp3 and in no acute distress. Head/Face: Normocephalic, atraumatic. Eyes: Pupils equal round and reactive to light, extra-ocular motions intact. Lids and lashes normal. Conjunctiva and sclera are non-icteric and not injected. Cornea within normal limits. Periorbital areas with no swelling, redness, or edema. ENT: Nares patent. No nasal discharge, no septal abnormalities noted. External auditory canals are clear. Oropharynx with no redness, swelling, or masses, exudates, or evidence of obstruction, uvula midline. Mucous membranes moist. Neck: Trachea midline, no thyromegaly or masses palpated, and no cervical lymphadenopathy. Supple, full range of motion without nuchal rigidity, or vertebral point tenderness. No Meningismus. Chest/axilla: Normal chest wall appearance and motion. Nontender with no deformity. No lesions are appreciated. Cardiovascular: Regular rate and rhythm with a normal S1 and S2. No gallops, murmurs, or rubs. Normal PMI, no JVD. No pulse deficits. Respiratory: Lungs have equal breath sounds bilaterally, clear to auscultation and percussion. No rales, rhonchi or wheezes noted. No increased work of breathing, no retractions or nasal flaring. Abdomen/GI: Soft, non-tender, with normal bowel sounds. No distension or tympany. No guarding or rebound. No evidence of tenderness throughout. Skin: Warm, dry with normal turgor. Normal color with no rashes, no lesions, and no evidence of cellulitis. Neuro: Awake and alert, GCS 15, oriented to person, place, time, and situation. Cranial nerves II-XII grossly intact. Motor strength 5/5 in all extremities. Sensory grossly intact. Cerebellar exam normal. Normal gait. Psych: Awake, alert, with orientation to person, place and time. Behavior, mood, and affect are within normal limits. 20:06 Back: No bony tenderness, but soft tissue pain along the musculature bilaterally paraspinous in the lumbar region.. 20:06 Musculoskeletal/extremity: Mild abrasions less than 2% body surface area bilateral volar surface of forearms. Distal neurovascular exam is normal.. Vital Signs: 19:50 BP 138 / 72; Pulse 91; Resp 16 S; Temp 98.5(O); Pulse Ox 100% on R/A; Weight 68.04 kg as6 (R); Height 5 ft. 7 in. (170.18 cm) (R); Pain 4/10; 21:41 BP 152 / 74; Pulse 86; Resp 18 S; Pulse Ox 100% on R/A; Pain 2/10; as6 19:50 Body Mass Index 23.49 (68.04 kg, 170.18 cm) as6 [place] Coma Score: 20:51 Eye Response: spontaneous(4). Verbal Response: oriented(5). Motor Response: obeys aa9 commands(6). Total: 15. Trauma Score (Adult): 20:51 Eye Response: spontaneous(1); Verbal Response: oriented(1); Motor Response: obeys aa9 commands(2); Systolic BP: > 89 mm Hg(4); Respiratory Rate: 10 to 29 per min(4); [place] Score: 15; Trauma Score: 12 MDM: 19:55 Patient medically screened. sp3 20:07 Data reviewed: vital signs, nurses notes. ED course: 21-year-old male with a HEAD BOOKKEEPER shunt sp3 who presents with fall greater than [address] scan of the head, C-spine, chest abdomen and pelvis. Basic laboratory values also pending. If work-up is negative patient will be discharged.. 21:39 ED course: Radiology findings reviewed and demonstrate no acute abnormality. Patient is sp3 now ambulatory and in no acute distress. Vital signs remained normal. We will discharge patient home at this time with no restrictions.. 02/09 19:55 Order name: Basic Metabolic Panel; Complete Time: 21:38 sp3 02/09 19:55 Order name: CBC with Diff; Complete Time: 21:38 sp3 02/09 19:55 Order name: CT Traumagram (Head C Spine CAP W Con); Complete Time: 21:38 sp3 02/09 19:55 Order name: Labs collected and sent; Complete Time: 20:20 sp3 02/09 19:55 Order name: NPO; Complete Time: 20:20 sp3 Administered Medications: 20:19 Drug: morphine 2 mg Route: IVP; Infused Over: 4 mins; Site: right antecubital; aa9 21:08 Follow up: Response: No adverse reaction aa9 20:19 Drug: Zofran (Ondansetron) 4 mg Route: IVP; Site: right antecubital; aa9 21:08 Follow up: Response: No adverse reaction aa9 Disposition Summary: 02/09/22 21:41 Discharge Ordered Location: Home sp3 Condition: Stable sp3 Diagnosis - Back contusion, closed head injury, fall > 8 ft sp3 Followup: sp3 - With: Private Physician - When: As needed - Reason: Continuance of care Discharge Instructions: - Discharge Summary Sheet sp3 - Contusion sp3 - Head Injury, Adult sp3 Forms: - Medication Reconciliation Form sp3 - Thank You Letter sp3 - Antibiotic Education sp3 - Prescription Opioid Use sp3 Prescriptions: - Diclofenac Sodium 75 mg Oral Tablet Sustained Release - take 1 tablet by ORAL route 2 times per day; 30 tablet; Refills: 0, Product sp3 Selection Permitted Signatures: Dispatcher [employer] EDMS Samina Martell RN RN kl Patel, Setul, MD MD sp3 Wilfrid Sotelo RN RN as6 Shilpi Garcia RN RN aa9 Corrections: (The following items were deleted from the chart) 20:06 20:04 -year-old male with a history of hydrocephalus, epilepsy with a HEAD BOOKKEEPER shunt presents sp3 to the ED for fall of approximately 9 feet through the attic onto garage floor landing on his back with the lower back and posterior occiput. Patient reports possible LOC for "a brief second". He denies any other symptoms including neck pain, chest pain, upper back pain, extremity pain, vomiting, diarrhea, bleeding, changes in vision, any other symptoms of supportive ROS at this time. . sp3
[2022-02-10 02:03] VITALS: TEMP 98.5; O2SAT 100
[2022-02-10 02:06] VITALS: BP 152/74
== END 2022-02-09 21:54 | disposition home or self-care (01) ==
LOC: ER 19:17
DX: S09.90XA Unspecified injury of head, initial encounter (principal); S30.0XXA Contusion of lower back and pelvis, initial encounter; W17.89XA Other fall from one level to another, initial encounter; G91.9 Hydrocephalus, unspecified; Z98.2 Presence of cerebrospinal fluid drainage device; Z88.5 Allergy status to narcotic agent
CPT/HCPCS: 85025; 80048; 36415; 70450; 72125; 71260; 74177; 96375; 96374; 99284; Q9967; J2270; J2405